=== PATIENT | male | born 1945 | race Caucasian/White ===

== ENCOUNTER → 2017-04-06 | Outpatient (CLI) | payer BC ==
--- NOTE | 2017-04-06 12:19 | RAD ---
Examination: Left knee, four views History: Bilateral pain, osteoarthritis Findings: No evidence for fracture, bone destruction or specific arthritis. Articular compartments ar e well maintained. No synovial effusion is seen. 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 Impression: No significant abnormality at the left knee. Reported By:
--- NOTE | 2017-04-06 12:22 | RAD ---
Examination: Right knee, four views History: Pain Findings: There is significant degenerative narrowing of lateral and medial compartments. Chondrocalc inosis is prominent. No fracture or osteolytic disease or significant synovial effusion. Impression: Osteoarthritis. Chondrocalcinosis consistent with CPPD. Reported By:
== END ==
LOC: RAD 09:33
PROVIDERS: ATTEND Physician Assistant
DX: M17.0 Bilateral primary osteoarthritis of knee (principal)
CPT/HCPCS: 73564

== ENCOUNTER 2017-08-24 11:20 | Inpatient (IN) ==
[2017-08-24] MEDS ORDERED: LEVAQUIN PREMIX IV 250 MG 250 MG/50 ML BAG IV ONE (11:21)
[2017-08-24] MEDS ORDERED: NS 1/2 1000 ML IV 1,000 ML IV ONE (11:21)
[2017-08-24] MEDS ORDERED: SALINE 3% 15 ML NEB TX ONE (11:42)
[2017-08-24] MEDS ORDERED: SALINE 3% 15 ML NEB TX NEB ONE (11:45)
[2017-08-24] MEDS ORDERED: TYLENOL #3 TAB (W/CODEINE) PO ONE (14:42)
[2017-08-24] MEDS ORDERED: TYLENOL 325 MG TAB PO ONE (14:54)
[2017-08-24] MEDS ORDERED: DUONEB 0.5 MG/3 MG ONE (15:34)
[2017-08-24] MEDS: DUONEB 0.5 MG/3 MG NEB SCH ×2 (16:00→20:06)
--- NOTE | 2017-08-24 16:32 | RAD ---
HISTORY: Fever. Pneumonia. Study: PA and lateral chest Comparison: None Findings: Moderate flattening of the hemidiaphragms is noted. There is minimal to mild bibasilar atelectatic c hange/infiltrate. There appear to most likely be a small effusion on the left. Borderline cardiomeg mj is noted. Moderate thoracic spondylosis is noted. IMPRESSION: 1. Borderline cardiomegaly without evidence of failure 2. Minimal to mild bibasilar atelectatic change/infiltrate. 2. Probable small left-sided pleural effusion. Reported By:
[2017-08-24] MEDS ORDERED: TUSSIONEX PENNKINETIC SUSP PO PRN (16:37)
[2017-08-24] MEDS ORDERED: TYLENOL 325 MG TAB PO PRN (16:40)
[2017-08-24 17:57] VITALS: BMI 35.1
--- NOTE | 2017-08-24 18:26 | CT ---
HISTORY: Headache. Study: CT brain without contrast. Comparison: None. Technique: Multiple axial images of the brain were obtained from the skull base to the vertex without administration of IV contrast. Findings: No acute intraparenchymal hemorrhage or mass can be identified. No extra-axial fluid collections are seen. No alteration in the attenuation of the brain parenchyma can be identified to suggest acute o r subacute ischemic change. The ventricular system is symmetric and nondilated. The extracranial st ructures are grossly unremarkable. IMPRESSION: No acute intracranial process can be identified. Reported By:
[2017-08-24 18:32] LABS: BASOPHILS # (AUTO) 0.1 X10^3/uL (0.0-0.1); BASOPHILS % (AUTO) 0.6 % (0.2-1.0); EOSINOPHILS # (AUTO) 0.1 x10^3/uL (0.0-0.2); EOSINOPHILS % (AUTO) 1.4 % (0.9-2.9); HEMATOCRIT 30.7 % (42.0-54.0); HEMOGLOBIN 10.3 g/dL (13.5-18.0); LYMPHOCYTES % (AUTO) 10.8 % (21.0-51.0); MEAN CORPUSCULAR HEMOGLOBIN 31.5 pg (27.0-34.0); MEAN CORPUSCULAR HGB CONC 33.4 g/dL (33.0-35.0); MEAN CORPUSCULAR VOLUME 94.1 fL (80.0-100.0); MONOCYTES # (AUTO) 0.8 x10^3/uL (0.3-0.8); MONOCYTES % (AUTO) 8.4 % (0.0-13.0); NEUTROPHILS # (AUTO) 7.4 x10^3/uL (2.2-4.8); NEUTROPHILS % (AUTO) 78.8 % (42.0-75.0); PLATELET COUNT 155 X10^3/uL (150.0-450.0); RED BLOOD COUNT 3.26 X10^6/uL (4.7-6.0); WHITE BLOOD COUNT 9.4 X10^3/uL (3.6-10.0)
[2017-08-24 18:33] LABS: CALCIUM 8.6 mg/dL (8.5-10.1); CARBON DIOXIDE 24.2 mmol/L (21-32); COR CA(FOR HYPOALB) 9.4 mg/dL (8.5-10.1); CREATININE 2.16 mg/dL (0.70-1.30); TOTAL PROTEIN 6.6 g/dL (6.4-8.2)
[2017-08-24] MEDS: ROBITUSSIN DM PO SCH ×2 (18:34→21:56)
[2017-08-24] MEDS: NS 1/2 1000 ML IV 1,000 ML IV SCH (18:35)
[2017-08-24] MEDS ORDERED: STERILE WATER IRRIGATION IR ONE (19:14)
[2017-08-24 19:59] LABS: APPEARANCE,URINE CLEAR (CLEAR); COLOR,URINE YELLOW (YELLOW); GLUCOSE, URINE NEGATIVE (NEGATIVE); PROTEIN,URINE 3+ (NEGATIVE)
[2017-08-24 20:00] LABS: BACTERIA,URINE NEGATIVE /HPF (NEGATIVE); BILIRUBIN,URINE NEGATIVE (NEGATIVE); BLOOD/HEMOGLOBIN,URINE 1+ (NEGATIVE); KETONES,URINE NEGATIVE (NEGATIVE); LEUKOCYTE ESTERASE ,URINE NEGATIVE (NEGATIVE); NITRITES,URINE NEGATIVE (NEGATIVE); RBC,URINE 0-2 /HPF (NONE SEEN); SQUAMOUS EPITHELIAL CELL,UR NEGATIVE /HPF (NEGATIVE); UROBILINOGEN,URINE NORMAL (NORMAL)
[2017-08-25] MEDS ORDERED: NS 1/2 1000 ML IV 1,000 ML IV ONE ×2 (02:21→18:36)
[2017-08-25] MEDS: ROBITUSSIN DM PO SCH ×4 (08:11→20:38)
[2017-08-25] MEDS: LEVAQUIN PREMIX IV 250 MG 250 MG/50 ML BAG IV SCH (08:11)
[2017-08-25] MEDS ORDERED: FIORICET TAB PO PRN (08:45)
[2017-08-25] MEDS: DUONEB 0.5 MG/3 MG NEB SCH ×4 (09:22→21:17)
[2017-08-25] MEDS: FLONASE NASAL SPRAY ENOSTRIL SCH (10:25)
[2017-08-25] MEDS: ZYLOPRIM PO SCH (11:16)
[2017-08-25] MEDS: VASOTEC TAB 20 MG PO SCH ×2 (11:16→20:36)
[2017-08-25] MEDS: ASPIRIN EC 81 MG PO SCH (11:21)
[2017-08-25] MEDS: CARAFATE PO SCH ×4 (11:21→20:37)
[2017-08-25] MEDS: COREG TAB 3.125 MG PO SCH ×2 (11:22→20:37)
[2017-08-25] MEDS: PLAVIX PO SCH (11:22)
[2017-08-25] MEDS: CRESTOR TAB 10 MG PO SCH (11:22)
[2017-08-25] MEDS: NEURONTIN TAB 600 MG PO SCH ×3 (11:22→21:05)
[2017-08-25] MEDS: PREDNISONE TAB 20 MG PO SCH ×2 (11:23→12:38)
[2017-08-25] MEDS: PriLOSEC PO SCH (11:23)
[2017-08-25] MEDS: PATIENT'S HOME MEDICATION (Mycophenolate Mofetil [Mycophenolate Mofetil] 500 MG) PO SCH ×4 (12:38→21:05)
--- NOTE | 2017-08-25 15:57 | DR.UPDATE ---
H&P Update History and Physical Update: WAS SEEN IN THE OFFICE TODAY. A H&P WAS COMPLETED PRIOR TO ADMISSION. PATIENT HAS BEEN SEEN AND EXAMINED WITH NO CHANGES NOTED TO H&P. Changes noted: NO Yes with the following:
[2017-08-25] MEDS: NS 1/2 1000 ML IV 1,000 ML IV SCH (20:36)
[2017-08-25] MEDS ORDERED: KLONOPIN TAB 0.5 MG PO SCH (21:00)
[2017-08-25] MEDS ORDERED: ZANAFLEX PO SCH (21:00)
[2017-08-25] MEDS ORDERED: ELAVIL PO SCH (21:00)
[2017-08-25] MEDS ORDERED: NIASPAN ER TAB 500 MG PO SCH (21:00)
[2017-08-26] MEDS ORDERED: NS 1/2 1000 ML IV 1,000 ML IV ONE (04:07)
[2017-08-26] MEDS: NEURONTIN TAB 600 MG PO SCH (05:07)
[2017-08-26] MEDS: PATIENT'S HOME MEDICATION (Mycophenolate Mofetil [Mycophenolate Mofetil] 500 MG) PO SCH (05:07)
[2017-08-26 06:15] LABS: BASOPHILS % (AUTO) 0.5 % (0.2-1.0); EOSINOPHILS # (AUTO) 0.3 x10^3/uL (0.0-0.2); EOSINOPHILS % (AUTO) 3.5 % (0.9-2.9); HEMATOCRIT 27.8 % (42.0-54.0); HEMOGLOBIN 9.6 g/dL (13.5-18.0); LYMPHOCYTES # (AUTO) 1.3 X10^3/uL (1.3-2.9); LYMPHOCYTES % (AUTO) 14.7 % (21.0-51.0); MEAN CORPUSCULAR HEMOGLOBIN 31.9 pg (27.0-34.0); MEAN CORPUSCULAR HGB CONC 34.5 g/dL (33.0-35.0); MEAN CORPUSCULAR VOLUME 92.4 fL (80.0-100.0); MEAN PLATELET VOLUME 8.5 fL (7.4-11.0); MONOCYTES # (AUTO) 0.7 x10^3/uL (0.3-0.8); MONOCYTES % (AUTO) 7.5 % (0.0-13.0); NEUTROPHILS # (AUTO) 6.5 x10^3/uL (2.2-4.8); NEUTROPHILS % (AUTO) 73.8 % (42.0-75.0); PLATELET COUNT 168 X10^3/uL (150.0-450.0); RED BLOOD COUNT 3.01 X10^6/uL (4.7-6.0); RED CELL DISTRIBUTION WIDTH 13.8 % (11.6-16.5); WHITE BLOOD COUNT 8.8 X10^3/uL (3.6-10.0)
[2017-08-26 06:17] LABS: ALBUMIN 2.3 g/dL (3.4-5.0); CALCIUM 8.1 mg/dL (8.5-10.1); COR CA(FOR HYPOALB) 9.5 mg/dL (8.5-10.1); CREATININE 1.48 mg/dL (0.70-1.30); TOTAL PROTEIN 5.7 g/dL (6.4-8.2)
--- NOTE | 2017-08-26 06:28 | RAD ---
Examination: Portable AP chest History: SOB Comparison reference 08/24/2017 continued normal heart size with essentially clear lungs and pleural spaces. Healed left clavicle fracture. Impression: No acute chest findings. Reported By:
[2017-08-26] MEDS: NS 1/2 1000 ML IV 1,000 ML IV SCH ×2 (07:03→08:56)
[2017-08-26] MEDS: ZYLOPRIM PO SCH (08:17)
[2017-08-26] MEDS: PriLOSEC PO SCH (08:18)
[2017-08-26] MEDS: ASPIRIN EC 81 MG PO SCH (08:18)
[2017-08-26] MEDS: VASOTEC TAB 20 MG PO SCH (08:18)
[2017-08-26] MEDS: COREG TAB 3.125 MG PO SCH (08:18)
[2017-08-26] MEDS: CRESTOR TAB 10 MG PO SCH (08:20)
[2017-08-26] MEDS: ROBITUSSIN DM PO SCH (08:20)
[2017-08-26] MEDS: PREDNISONE TAB 20 MG PO SCH (08:21)
[2017-08-26] MEDS: CARAFATE PO SCH (08:21)
[2017-08-26] MEDS: PLAVIX PO SCH (08:23)
[2017-08-26 08:34] VITALS: BP 166/75
[2017-08-26] MEDS: LEVAQUIN PREMIX IV 250 MG 250 MG/50 ML BAG IV SCH (08:54)
[2017-08-26] MEDS: FLONASE NASAL SPRAY ENOSTRIL SCH (08:54)
[2017-08-26] MEDS: DUONEB 0.5 MG/3 MG NEB SCH (08:58)
[2017-08-26] MEDS ORDERED: CARDURA PO SCH (21:00)
--- NOTE | 2017-08-26 22:05 | PCM.PROG ---
Progress Note - Progress Note for Day of Date: 08/25/17 - Subjective Subjective: WAS ADMITTED YESTERDAY FOR PNEUMONIA. TODAY, HE IS ALERT AND ORIENTED, LYING IN BED ON MORNING ROUNDS. HE CONTINUES WITH COMPLAINTS OF SHORTNESS OF BREATH, PRODUCTIVE COUGH, NASAL CONGESTION, AND IS ALSO NOTED WITH COMPLAINTS OF A HEADACHE. ON EXAMINATION, HEART IS REGULAR IN RATE AND RHYTHM. BILATERAL LUNGS ARE NOTED WITH SCATTERED WHEEZING. ABDOMEN IS ROUND, SOFT, AND NON-TENDER WITH NORMAL BOWEL SOUNDS NOTED IN ALL QUADRANTS. HIS VITALS TODAY ARE 97.0-56-18-95%-169/79. A BRAIN CT WAS OBTAINED ON ADMISSION DUE TO COMPLAINTS OF HEADACHE. IT REVEALED NO ACUTE INTRACRANIAL PROCESS. CHEST XRAY REVEALED MINIMAL TO MILD BIBASILAR ATELECTATIC CHANGE/INFILTRATE. PROBABLE SMALL LEFT SIDED PLEURAL EFFUSION. BORDERLINE CARDIOMEGALY WITHOUT EVIDENCE OF FAILURE. TODAY, WE WILL START FIORCET 1 TAB Q6H PRN AND FLONASE 1 SPRAY TO EACH NOSTRIL DAILY. OTHERWISE, WE WILL CONTINUE WITH IV ANTIBIOTICS, RESPIRATORY TREATMENTS, AND SUPPLEMENTAL OXYGEN. WE WILL FOLLOW UP WITH AM LABS AND CHEST XRAY AND CONTINUE TO MONITOR. - Past Medical Family Social History Past Med/Fam/Surg Hx: No changes since H&P Allergies: Allergies No Known Drug Allergies Allergy (Verified 08/24/17 16:01) - Review of Systems ROS: No change since H&P - Vital Signs and I&O's Vital Signs: Temperature 98.8 F Pulse Rate [Right Brachial] 85 Pulse Rate 62 Respiratory Rate 20 Blood Pressure [Right Arm] 166/75 O2 Sat by Pulse Oximetry 97 Intake and Output: Intake & Output 08/24/17 08/25/17 08/26/17 08/27/17 11:59 11:59 11:59 11:59 Intake Total 1633 / 1633 2099 Output Total 900 / 900 Balance 733 / 733 2099 - Physical Exam Oriented: Normal Eyes: Normal Ear: Normal Nose: Normal Throat: Normal Respiratory: Right, Left, Generalized, Wheezes Cardiovascular: Normal. negative: S3, S4, Murmur : Normal Auscultation: Bowel Sounds: Normal Palpation: Normal Tenderness: Normal Skin: Normal Musculoskeletal: Normal Psychiatric: Normal Mood Description: Calm Affect: Normal Speech Pattern: Clear, Appropriate - Laboratory and Diagnostics Result Diagrams: 08/26/17 04:25 08/26/17 04:25 Labs: 08/24/17 11:42 Blood Blood Culture - Preliminary 08/24/17 11:29 Blood Blood Culture - Preliminary 08/24/17 13:40 Sputum - Expectorated Sputum Sputum Culture - Final 08/24/17 13:40 Sputum - Expectorated Sputum - Final 08/24/17 16:37 Urine,Clean Catch Urine Culture - Final Laboratory WBC 8.8 X10^3/uL (3.6-10.0) 08/26/17 04:25 RBC 3.01 X10^6/uL (4.7-6.0) L 08/26/17 04:25 Hgb 9.6 g/dL (13.5-18.0) L 08/26/17 04:25 Hct 27.8 % (42.0-54.0) L 08/26/17 04:25 MCV 92.4 fL (80.0-100.0) 08/26/17 04:25 MCH 31.9 pg (27.0-34.0) 08/26/17 04:25 MCHC 34.5 g/dL (33.0-35.0) 08/26/17 04:25 RDW 13.8 % (11.6-16.5) 08/26/17 04:25 Plt Count 168 X10^3/uL (150.0-450.0) 08/26/17 04:25 MPV 8.5 fL (7.4-11.0) 08/26/17 04:25 Neut % (Auto) 73.8 % (42.0-75.0) 08/26/17 04:25 Lymph % (Auto) 14.7 % (21.0-51.0) L 08/26/17 04:25 [place] % (Auto) 7.5 % (0.0-13.0) 08/26/17 04:25 Eos % (Auto) 3.5 % (0.9-2.9) H 08/26/17 04:25 Baso % (Auto) 0.5 % (0.2-1.0) 08/26/17 04:25 Neut # (Auto) 6.5 x10^3/uL (2.2-4.8) H 08/26/17 04:25 Lymph # (Auto) 1.3 X10^3/uL (1.3-2.9) 08/26/17 04:25 [place] # (Auto) 0.7 x10^3/uL (0.3-0.8) 08/26/17 04:25 Eos # (Auto) 0.3 x10^3/uL (0.0-0.2) H 08/26/17 04:25 Baso # (Auto) 0.0 X10^3/uL (0.0-0.1) 08/26/17 04:25 Absolute Nucleated RBC 0.0 /100WBC 08/26/17 04:25 Sodium 142 mmol/L (136-145) 08/26/17 04:25 Corrected Sodium 142 mmol/L (136-145) 08/26/17 04:25 Potassium 4.7 mmol/L (3.5-5.1) 08/26/17 04:25 Chloride 109 mmol/L (98-107) H 08/26/17 04:25 Carbon Dioxide 24.0 mmol/L (21-32) 08/26/17 04:25 BUN 27 mg/dL (7-18) H 08/26/17 04:25 Creatinine 1.48 mg/dL (0.70-1.30) H 08/26/17 04:25 Est GFR (MDRD) Af Amer 60 (>60) 08/26/17 04:25 Est GFR (MDRD) Non-Af 50 (>60) L 08/26/17 04:25 Glucose 113 mg/dL (65-99) H 08/26/17 04:25 Calcium 8.1 mg/dL (8.5-10.1) L 08/26/17 04:25 Corrected Calcium 9.5 mg/dL (8.5-10.1) 08/26/17 04:25 Total Bilirubin 0.20 mg/dL (0.2-1.0) 08/26/17 04:25 AST 19 Units/L (15-37) 08/26/17 04:25 ALT 17 Units/L (12-78) 08/26/17 04:25 Alkaline Phosphatase 41 Units/L (46-116) L 08/26/17 04:25 Total Protein 5.7 g/dL (6.4-8.2) L 08/26/17 04:25 Albumin 2.3 g/dL (3.4-5.0) L 08/26/17 04:25 Globulin 3.4 g/dL (2.5-4.5) 08/26/17 04:25 Albumin/Globulin Ratio 0.7 Ratio (1.1-2.1) L 08/26/17 04:25 Specimen Type Random urine 08/24/17 11:32 Urine Color Yellow (YELLOW) 08/24/17 11:32 Urine Appearance Clear (CLEAR) 08/24/17 11:32 Urine pH 5.0 (5.0 - 8.0) 08/24/17 11:32 Ur Specific [place] 1.010 (1.000-1.030) 08/24/17 11:32 Urine Protein 3+ (NEGATIVE) 08/24/17 11:32 Urine Glucose (UA) Negative (NEGATIVE) 08/24/17 11:32 Urine Ketones Negative (NEGATIVE) 08/24/17 11:32 Urine Occult Blood 1+ (NEGATIVE) 08/24/17 11:32 Urine Nitrite Negative (NEGATIVE) 08/24/17 11:32 Urine Bilirubin Negative (NEGATIVE) 08/24/17 11:32 Urine Urobilinogen Normal (NORMAL) 08/24/17 11:32 Ur Leukocyte Esterase Negative (NEGATIVE) 08/24/17 11:32 Urine RBC 0-2 /HPF (NONE SEEN) 08/24/17 11:32 Urine WBC 0-2 /HPF (NONE SEEN) 08/24/17 11:32 Ur Squamous Epith Cells Negative /HPF (NEGATIVE) 08/24/17 11:32 Urine Bacteria Negative /HPF (NEGATIVE) 08/24/17 11:32 Ur Culture Indicated? No/not indicated 08/24/17 11:32 Influenza Type A (PCR) Negative (NEGATIVE) 08/24/17 11:32 Influenza Type B (PCR) Negative (NEGATIVE) 08/24/17 11:32 - Plan (1) Bronchopneumonia Status: Acute Plan: CONTINUE LEVAQUIN, RESPIRATORY TREATMENTS, SUPPLEMENTAL OXYGEN, CONTINUE TO MONITOR (2) Sinusitis Status: Acute Qualifiers: Sinusitis location: unspecified location Chronicity: acute Recurrence: not specified as recurrent Qualified Code(s): J01.90 - Acute sinusitis, unspecified Plan: CONTINUE LEVAQUIN, START FLONASE 1 SPRAY TO EACH NOSTRIL DAILY, FIORCET FOR HEADACHE, CONTINUE TO MONITOR
--- NOTE | 2017-08-28 23:34 | DR.CARTERD ---
- Discharge Summary for: Discharge Summary for Date of:: 08/26/17 - Admission Date Date of Admission: 08/24/17 - Admission Diagnoses Admission Diagnosis: (1) Bronchopneumonia (2) Sinusitis - Discharge Date Discharge Date: 08/26/17 - Discharge Diagnoses Discharge Diagnosis: (1) Bronchopneumonia (2) Sinusitis - Hospital Course Hospital Course: MR. CRABTREE WAS ADMITTED FOR BRONCHOPNEUMONIA. PATIENT REPORTED FATIGUE, FEVER, MALAISE, HEADACHE, NASAL DISCHARGE, SHORTNESS OF BREATH, POOR APPETITE, AND NAUSEA. ON AUSCULTATION, LUNGS WERE NOTED WITH RHONCHI THROUGHOUT. WE ADMITTED PATIENT TO THE HOSPITAL AND STARTED HIM ON THE PNEUMONIA PROTOCOL. ON DAY TWO, PATIENT WAS ALERT AND ORIENTED, LYING IN BED ON MORNING ROUNDS. HE CONTINUED WITH COMPLAINTS OF SHORTNESS OF BREATH, PRODUCTIVE COUGH, NASAL CONGESTION, AND HEADACHE. ON EXAMINATION, HEART WAS REGULAR IN RATE AND RHYTHM. BILATERAL LUNGS WERE NOTED WITH SCATTERED WHEEZING. ABDOMEN WAS ROUND, SOFT, AND NON-TENDER WITH NORMAL BOWEL SOUNDS NOTED IN ALL QUADRANTS. HIS VITALS WERE 97.0-56-18-95%- 169/79. A BRAIN CT WAS OBTAINED ON ADMISSION DUE TO COMPLAINTS OF HEADACHE. IT REVEALED NO ACUTE INTRACRANIAL PROCESS. CHEST XRAY REVEALED MINIMAL TO MILD BIBASILAR ATELECTATIC CHANGE/INFILTRATE. PROBABLE SMALL LEFT SIDED PLEURAL EFFUSION. BORDERLINE CARDIOMEGALY WITHOUT EVIDENCE OF FAILURE. WE STARTED FIORCET 1 TAB Q6H PRN AND FLONASE 1 SPRAY TO EACH NOSTRIL DAILY. WE CONTINUED WITH IV ANTIBIOTICS, RESPIRATORY TREATMENTS, AND SUPPLEMENTAL OXYGEN. ON DAY THREE, PATIENT REPORTED SIGNIFICANT IMPROVEMENT IN SYMPTOMS. HE DENIED SHORTNESS OF BREATH. HE WAS NOTED WITH NO RESPIRATORY DISTRESS. ON AUSCULTATION , LUNGS WERE NOTED WITH SCATTERED RHONCHI THROUGHOUT. VITAL SIGNS STABLE, AFEBRILE. LABS WNL. WE PLANNED FOR DISCHARGE WITH ORAL ANTIBIOTICS. INSTRUCTIONS FOR MEDICATIONS AND FOLLOW UP WERE DISCUSSED WITH PATIENT AND FAMILY, BOTH VOICED UNDERSTANDING. PATIENT DISCHARGED HOME IN STABLE CONDITION WITH FAMILY. - Discharge Medications Discharge Medications: acetaminophen-codeine 1 tab PO Q4-6H PRN 08/24/17 [History] allopurinol 300 mg PO DAILY 08/24/17 [History] amitriptyline 10 mg PO HS 08/24/17 [History] aspirin [Aspir-81] 81 mg PO DAILY 08/24/17 [History] azithromycin 250 mg PO DAILY 08/24/17 [History] carvedilol 3.125 mg PO BID 08/24/17 [History] clonazepam 0.5 mg PO HS 08/24/17 [History] clopidogrel 75 mg PO DAILY 08/24/17 [History] doxazosin 8 mg PO HS 08/24/17 [History] enalapril maleate 20 mg PO BID 08/24/17 [History] fluticasone 2 spray INTRANASAL DAILY 08/24/17 [History] furosemide 20 mg PO DAILY 08/24/17 [History] gabapentin 600 mg PO TID 08/24/17 [History] mycophenolate mofetil 500 mg PO TID 08/24/17 [History] niacin 500 mg PO HS 08/24/17 [History] omeprazole 40 mg PO DAILY 08/24/17 [History] prednisone 20 mg PO DAILY 08/24/17 [History] rosuvastatin 10 mg PO DAILY 08/24/17 [History] sucralfate 1 g PO QID 08/24/17 [History] tizanidine 4 mg PO HS 08/24/17 [History] [id number] [Fioricet] 1 cap PO Q4H PRN #30 cap 08/26/17 [Rx] levofloxacin [Levaquin] 250 mg PO DAILY #10 tab 08/26/17 [Rx] - Discharge Disposition Discharge Disposition: PATIENT IS TO FOLLOW UP WITH [facility] IN ONE WEEK.
== END 2017-08-26 11:50 | disposition home or self-care (01) | DRG 194 ==
LOC: OBS 13:40 → MED/SURG 08-25 11:43
PROVIDERS: ADMIT Internal Medicine; ATTEND Internal Medicine
DX: R51 Headache; J01.80 Other acute sinusitis; J90 Pleural effusion, not elsewhere classified; N19 Unspecified kidney failure; J18.0 Bronchopneumonia, unspecified organism; R06.02 Shortness of breath
CPT/HCPCS: 36415; 70450; 71010; 71020; 71045; 71046; 80053; 81001; 85025; 87040; 87070; 87086; 87205; 87502; 94640; 94760; A4217; A4222; J1956; J3490; J7506; J7620